=== PATIENT | male | born 1990 | race Caucasian/White ===

== ENCOUNTER 2022-02-12 03:21 | Emergency (ER) | payer OTHER ==
[2022-02-12 04:18] LABS: BILIRUBIN 1+ mg/dL (NEGATIVE); BLOOD NEGATIVE Ery/uL (NEGATIVE); CLARITY CLEAR (CLEAR); COLOR YELLOW (YELLOW); GLUCOSE (U) NORMAL (NORMAL); LEUKOCYTES NEGATIVE Leu/uL (NEGATIVE); NITRITE NEGATIVE (NEGATIVE); PROTEIN NEGATIVE (NEGATIVE); SPECIFIC GRAVITY 1.025 (1.001-1.030)
[2022-02-12 04:25] LABS: SQUAMOUS EPITHELIAL CELLS RARE; URINARY WBC RARE
[2022-02-12] MEDS ORDERED: NORCO 5-325 TA1 EACH PO (06:58)
[2022-02-12] MEDS ORDERED: VIBRAMYCIN100 MG PO (06:58)
[2022-02-15 21:08] LABS: CHLAMYDIA TRACHOMATIS, NAA Negative (Negative); NEISSERIA GONORRHOEAE, NAA Negative (Negative)
== END 2022-02-12 07:27 | disposition home or self-care (01) ==
LOC: FER 03:21
PROVIDERS: Emergency Medicine
DX: N45.1 Epididymitis (principal)
CPT/HCPCS: 76870; 81001; 87491; 87591; J0696